=== PATIENT | female | born 1945 | race Caucasian/White ===

== ENCOUNTER → 2016-06-26 | Outpatient (CLI) | payer OTHER ==
[~2016-06-26] MED LIST: ALBU1AER9 INH; ASCO10003 PO; ASPI81TA21 PO; CHOL20005 PO; CYAN500T13 PO; LEVO50TA6 PO; LEVO75TA5 PO; LORA-741 PO; MONT1TAB3 PO; OMEG10007 PO; OXYC-57 PO; POLY335025 PO; SIMV10TA2 PO; VENL75TA4 PO; ZNTT/150 PO
--- NOTE | 2016-06-26 12:21 | DIAGNOSTIC IMAGING REPORT ---
EXAMINATION: RENAL ULTRASOUND CLINICAL HISTORY: Bladder carcinoma COMPARISON STUDY: CT scan performed July 2008 FINDINGS: The right kidney measures 9.2 cm. The left kidney measures 9.8 cm. There is no evidence of hydronephrosis. There are no renal masses. No bladder abnormalities are visualized. Bilateral ureteral jets were visualized. IMPRESSION : Normal study Electronically signed by: Abdulaziz Starkey M.D. 06/26/2016 12:19 PM Dictated Date/Time: 06/26/2016 12:18 PM
== END | disposition home or self-care (01) ==
LOC: C.ULTR 10:16
PROVIDERS: ATTEND Urology
DX: C67.9 Malignant neoplasm of bladder, unspecified (principal)

== ENCOUNTER → 2016-09-11 | Outpatient (CLI) | payer OTHER ==
[~2016-09-11] MED LIST changes: -OXYC-57 PO
[2016-09-11 12:29] LABS: BASO % 1.6 %; BASO ABS # 0.08 K/uL (0-0.2); COMPLETE YES; EOS % 5.7 %; HEMATOCRIT 40.2 % (37-47); LYMPH % 35.2 %; LYMPH ABS # 1.79 K/uL (1.2-3.4); MEAN CELL VOLUME 92.6 fL (80-100); MEAN CORPUSCULAR HEMOGLOBIN 31.8 pg (25-34); MEAN CORPUSCULAR HGB CONC 34.3 g/dl (32-36); MONO % 8.8 %; NEUT % 48.7 %; PLATELET COUNT 215 K/uL (130-400); RED BLOOD COUNT 4.34 M/uL (4.2-5.4); WHITE BLOOD COUNT 5.09 K/uL (4.8-10.8)
[2016-09-11 14:19] LABS: ALT/SGPT 25 U/L (12-78); BLOOD UREA NITROGEN 14 mg/dl (7-18); BUN/CREATININE RATIO 17.6 (10-20); CALCIUM 8.6 mg/dl (8.5-10.1); CARBON DIOXIDE 26 mmol/L (21-32); CHLORIDE 105 mmol/L (98-107); CHOLESTEROL 185 mg/dl (0-200); GLUCOSE 101 mg/dl (70-99); POTASSIUM 4.2 mmol/L (3.5-5.1); SODIUM 140 mmol/L (136-145); TRIGLYCERIDES 124 mg/dl (0-150); VERY LOW DENSITY LIPOPROT CALC 25 mg/dl
[2016-09-11 14:21] LABS: CHOLESTEROL/HDL RATIO 3.4; HDL CHOLESTEROL 54 mg/dl; LDL CHOLESTEROL CALCULATED 106 mg/dl
== END | disposition home or self-care (01) ==
LOC: C.LABPVFM 08:55
PROVIDERS: ATTEND Family Medicine
DX: Z11.59 Encounter for screening for other viral diseases (principal); E03.9 Hypothyroidism, unspecified; R53.83 Other fatigue; E78.5 Hyperlipidemia, unspecified

== ENCOUNTER → 2016-09-29 | Outpatient (CLI) | payer OTHER ==
[~2016-09-29] MED LIST changes: +OPTIRAY 320 IV PRN
--- NOTE | 2016-09-29 20:14 | DIAGNOSTIC IMAGING REPORT ---
CT OF THE ABDOMEN AND PELVIS WITH AND WITHOUT CONTRAST HEMATURIA PROTOCOL CLINICAL HISTORY: Hematuria. History of bladder cancer. COMPARISON STUDY: CT of the abdomen and pelvis July 30, 2008 and IVP March 10, 2016 and renal ultrasound June 26, 2016. TECHNIQUE: Unenhanced and split bolus phase imaging of the abdomen and pelvis was performed. Injection of 114 cc Optiray [address] DOSE: 895.66 mGycm FINDINGS: No renal, ureteral or bladder calculi are present. A 6 mm cyst within the upper pole of the right kidney is noted. There is a subcentimeter lesion within the lower pole the right kidney which is too small to characterize. No definite solid renal lesions are present. There is mild right hydroureteral necrosis which is likely similar to IVP of March 10, 2016. No upper tract urothelial lesions are identified on this examination. Note is made of a filling defect within the posterior aspect of the bladder that measures approximate 4.1 x 1.3 cm. This appears mobile. No additional abnormality is within the bladder present. The liver, spleen, adrenal glands and pancreas are normal. A small hiatal hernia is noted. There is no abdominal or pelvic lymphadenopathy. There is a moderate amount of stool within the colon. There is no evidence for a bowel obstruction. There are no suspicious osseous lesions. IMPRESSION: 1. 4.1 x 1.3 cm hypodense filling defect within the dependent aspect of the bladder which appears mobile. This is nonspecific and could debris or blood clot although is less dense than expected for clot. A tumor is considered much less likely although if persistent symptoms, correlation with cystoscopy is recommended. 2. Mild right hydroureter and borderline right hydronephrosis which is likely similar to IVP of March 10, 2016. 3. No urinary calculi. Electronically signed by: Hernandez Abreu M.D. 09/29/2016 8:13 PM Dictated Date/Time: 09/29/2016 5:56 PM
== END | disposition home or self-care (01) ==
LOC: C.CTS 16:18
PROVIDERS: ATTEND Urology
DX: C67.9 Malignant neoplasm of bladder, unspecified (principal); R31.9 Hematuria, unspecified; R10.9 Unspecified abdominal pain; N13.30 Unspecified hydronephrosis

== ENCOUNTER → 2017-02-07 | Outpatient (CLI) | payer OTHER ==
[~2017-02-07] MED LIST changes: -OPTIRAY 320 IV PRN
--- NOTE | 2017-02-07 16:11 | MAMMOGRAPHY REPORT ---
BILATERAL DIGITAL SCREENING MAMMOGRAM WITH CAD: 02/07/2017 CLINICAL HISTORY: Routine screening. TECHNIQUE: Current study was also evaluated with a Computer Aided Detection (CAD) system. COMPARISON: Comparison is made to exams dated: 02/01/2016 mammogram, 01/29/2015 mammogram, 01/28/2014 m ammogram, 10/02/2012 mammogram, 10/02/2011 mammogram, and 09/26/2010 mammogram - [facility] nter. BREAST COMPOSITION: The tissue of both breasts is heterogeneously dense, which may obscure small mas ses. FINDINGS: There is a 5 mm nodular asymmetry in the superior middle one third of the left breast on t he MLO view and a 5 mm nodular asymmetry in the lateral posterior left breast on the CC view. It is unclear if they represent the same finding. Nevertheless, additional spot compression tomosynthesis views and possibly ultrasound are recommended. There are stable postsurgical changes in the anterior left breast, with surgical clips remaining in p lace. A stable ribbon shaped metallic biopsy marker in the far posterior superior left breast on the MLO view. Benign-appearing rodlike calcifications bilaterally. No other suspicious mass, information and data architect analyst ural distortion or suspicious calcifications bilaterally. IMPRESSION: ACR BI-RADS CATEGORY 0: INCOMPLETE EVALUATION: NEED ADDITIONAL IMAGING EVALUATION The 5 mm nodular asymmetries in the left superior and lateral breast need additional evaluation. The patient will be called to schedule an appointment. Approximately 10% of breast cancers are not detected with mammography. A negative mammographic report should not delay biopsy if a clinically suggestive mass is present. Tanisha Hernandez M.D. ay/:02/07/2017 15:40:36 Senior Mobile Developer: Nikolay DIAZ(Aleida)(M), [facility] letter sent: Addl Imaging 0 BI-RADS Code: ACR BI-RADS Category 0: Incomplete Evaluation: Need Additional Imaging Evaluation
== END | disposition home or self-care (01) ==
LOC: C.MAMM 13:59
PROVIDERS: ATTEND Family Medicine
DX: Z12.31 Encounter for screening mammogram for malignant neoplasm of breast (principal); N64.89 Other specified disorders of breast

== ENCOUNTER → 2017-02-12 | Outpatient (CLI) | payer OTHER ==
--- NOTE | 2017-02-12 15:53 | MAMMOGRAPHY REPORT ---
UNILATERAL LEFT DIGITAL DIAGNOSTIC MAMMOGRAM TOMOSYNTHESIS AND TARGETED LEFT ULTRASOUND: 02/12/2017 CLINICAL HISTORY: 71 year-old woman with a personal history of left breast atypical ductal hyperplasi a status post surgical excision and could not tolerate hormone therapy. She was called back from [facility] ent screening mammogram for 5 mm nodular asymmetry in the lateral posterior left breast on the CC vie w, may project superiorly on the MLO view. Patient is also feeling a palpable lump in the medial lef t breast. TECHNIQUE: Spot compression left CC and MLO 2-D and tomosynthesis images were obtained. COMPARISON: Comparison is made to exams dated: 02/07/2017 mammogram, 02/01/2016 mammogram, 01/29/2015 ma mmogram, 01/28/2014 mammogram, 10/02/2012 mammogram, and 10/02/2011 mammogram - [facility]. BREAST COMPOSITION: The tissue of the left breast is heterogeneously dense, which may obscure small masses. FINDINGS: A triangular palpable marker overlies the lower inner anterior left breast, denoting the p alpable lump pointed out by the patient. There is no obvious new mass, architectural distortion or m icrocalcifications in the area of palpable lump. There are stable surgical clips in the anterior lef t breast, denoting the site of prior surgical excision. This excision was performed for a palpable l ump in 2011 and yielded atypical ductal hyperplasia at final surgical pathology. There is a stable r ibbon-shaped biopsy marker clip in the far superior and posterior left breast only seen on the spot c ompression MLO view which has been present and unchanged dating back to 2007. On the spot compressio n left CC view performed in the lateral breast, there is a lobulated, 5.9 x 4.3 mm mass slightly medi al to the original 5 mm asymmetry seen on the screening mammogram. No unexpected area of architectur al distortion is seen. No obvious mass or other suspicious abnormality is identified on the spot com pression MLO view. Further evaluation with ultrasound was performed. Targeted ultrasound was performed in the area of palpable lump pointed out by the patient and also th roughout the lateral left breast. In the 8:30 left breast, 4 cm from the nipple, on palpation there is a soft 1 cm mobile mass. In this area on ultrasound, there is a prominent fat lobule just deep to the dermis measuring 1.5 x 0.3 cm, which may correlate as palpated and is compatible with a benign l ipoma and/or prominent fat lobule. There is no evidence of a suspicious solid or cystic mass. In the 4:00 left breast, 2 cm from the nipple, there is a hypoechoic solid mass with non-circumscribe d borders measuring 4.5 x 3.0 x 5.5 mm. In the 12:00 left breast, 1 cm from the nipple, there is a h ypoechoic mass measuring 4.5 x 1.5 x 4.4 mm. This could simply represent postsurgical change or mendy gn duct ectasia. In the 1:00 left breast, 5 cm from the nipple, there is a multilobulated hypoechoic solid mass measuring approximately 4.8 x 4.5 x 2.0 mm. Given the personal history of atypia, ultras ound guided core biopsy of all 3 masses is recommended. It is unclear which of the masses may correl ate with the persistent mass seen on the spot compression view although the mass in the 4:00 axis see ms most likely. The ribbon-shaped biopsy marker clip that has been present back to 2007 is in the ap proximate 12:00 posterior breast and likely does not correlate with any of the above-described 3 mass es seen on the current ultrasound exam. IMPRESSION: ACR BI-RADS CATEGORY 4: SUSPICIOUS, TARGETED ULTRASOUND ACR BI-RADS CATEGORY 4: SUSPICIO US 1. Ultrasound guided core biopsy 3 is recommended in the left breast, for indeterminate solid ifeoma s identified in the 12:00, 1:00 and 4:00 axes. The initial 5 mm nodular asymmetries efface on both s upplemental mammographic views but there was a persistent lobulated 6 x 4 mm mass on the spot mandy tanya CC view which prompted the targeted breast ultrasound in the lateral aspect of the breast. 2. The palpable lump in the 9:00 left breast is thought to correlate with a benign lipoma or promine nt fat lobule. There is no evidence of a suspicious mass or mammographic or targeted sonographic jose juan dence of malignancy in the area of palpable concern. These results and recommendations were discussed with the patient at the time of the exam. She tenta tively scheduled the biopsy appointment prior to leaving our department. Approximately 10% of breast cancers are not detected with mammography. A negative mammographic report should not delay biopsy if a clinically suggestive mass is present. Tanisha Hernandez M.D. ay/:02/12/2017 14:54:42 Research Professor: Silvia DIAZ(Aleida)(M), [facility] letter sent: Abnormal 4/5 BI-RADS Code: ACR BI-RADS Category 4: Suspicious Ultrasound BI-RADS: ACR BI-RADS Category 4: Suspici ous
== END | disposition home or self-care (01) ==
LOC: C.MAMM 13:55
PROVIDERS: ATTEND Family Medicine
DX: R92.8 Other abnormal and inconclusive findings on diagnostic imaging of breast (principal); N63 Unspecified lump in breast

== ENCOUNTER → 2017-02-20 | Outpatient (CLI) | payer OTHER ==
--- NOTE | 2017-02-20 12:19 | Discharge Instructions ---
Discharge Instructions Procedure Procedure Date: Feb 20, 2017. Reason for visit: LEFT BREAST MASSES x3. Discharge Discharge Date: Feb 20, 2017. Discharge Diagnosis: post left breast ultrasound guided core biopsy x 3 Medications Restart Stopped Medication(s): May restart Aspirin tomorrow Instructions Activity Recommendations: Additional Limitations (see below) Return to School/Work: no limitations Recommended Home Diet: No Limitations Provider Instructions: ACTIVITY RECOMMENDATIONS: * No lifting, pushing, pulling or exercising the affected side for three days. RETURN TO SCHOOL/WORK: * You may return to work/school after the procedure, but do not perform any strenuous activities for 24 to 48 hours. MEDICATIONS: * Tylenol (two 325 mg) every four to six hours if needed for mild pain (if not allergic to Tylenol). DIET: * Resume previous diet. SPECIAL CARE INSTRUCTIONS: * Keep biopsy site dry for 24 hours. May shower after 24 hours, but do not soak (bathe) incision. * May remove Tegaderm (plastic patch) tomorrow AFTER showering. * Leave the steri-strips on for one week. Allow the steri-strips to fall off by themselves. If not off after one week, you may remove them. You may place a Bandaid crosswise over the strips, if desired. * Apply ice 10 minutes on and 10 minutes off as needed. * Wear a bra at bedtime to sleep more comfortably for 2-3 days. * Your referring physician should have the results after approximately 5 to 7 business days. * Call for unusual bleeding, fever, drainage, etc or if you have any questions call [phone] during normal business hours or after hours call Dr Hernandez, . FOLLOW UP VISIT: Follow-up with Referring Physician as scheduled. Allergies Coded Allergies: Chlorhexidine (Unverified Allergy, Severe, SEVERE SKIN WATKINS/ASTHMA ATTACK , 02/11/16) Isopropyl Alcohol (Unverified Allergy, Severe, SEVERE SKIN WATKINS/ASTHMA ATTACK, 02/11/16) Penicillins (Verified Allergy, Intermediate, RASH, 03/10/16) Sulfa Antibiotics (Verified Allergy, Intermediate, RASH, 03/10/16) Eliseo Barker Recommendations: Call your doctor if: * Temperature above 101 degrees * Pain not relieved by pain medicine ordered * There is increased drainage or redness from any incision * You have any unanswered questions or concerns. Your Doctors Instructions noted above were prepared by provider Tanisha Hernandez. Patient Signature Section: Patient Instructions Signature Page Dena Jacky Patient (or Guardian) Signature/Date: I have read and understand the instructions given to me by my caregivers. Caregiver/RN/Doctor Signature/Date: The above-named patient and/or guardian has received patient instructions on this date. + Original Patient Signature Page (only) stays with chart. Please make copy for patient.
--- NOTE | 2017-02-27 09:06 | MAMMOGRAPHY REPORT ---
ULTRASOUND GUIDED BIOPSY: 02/20/2017 CLINICAL HISTORY: 3 indeterminate hypoechoic solid masses in the left breast at 12:00, 1:00 and 4:00. Patient presented for ultrasound guided core biopsy 3. Please refer to the report from left breast ultrasound guided core biopsy performed at the same time for full detail. IMPRESSION: ULTRASOUND GUIDED BIOPSY Please refer to the report from left breast ultrasound guided core biopsy performed at the same time for full detail. Tanisha Hernandez M.D. ay/:02/20/2017 12:22:01 Steel Worker: Nikolay DIAZ(R)(M), [facility]
--- NOTE | 2017-02-27 09:06 | MAMMOGRAPHY REPORT ---
ULTRASOUND GUIDED BIOPSY: 02/20/2017 CLINICAL HISTORY: Indeterminate solid masses in the left breast 12:00, 1:00 and 4:00 axes. Patient p resents for ultrasound guided core biopsy 3. Please refer to the report from left breast ultrasound guided core biopsy performed at the same time for full detail. IMPRESSION: ULTRASOUND GUIDED BIOPSY Please refer to the report from left breast ultrasound guided core biopsy performed at the same time for full detail. Tanisha Hernandez M.D. ay/:02/20/2017 12:21:25 Airport Tower Controller: Nikolay Taylor RT(R)(M), [facility]
--- NOTE | 2017-02-27 09:06 | MAMMOGRAPHY REPORT ---
UNILATERAL LEFT DIGITAL DIAGNOSTIC MAMMOGRAM TOMOSYNTHESIS: 02/20/2017 CLINICAL HISTORY: Status post ultrasound guided core biopsy 3 in the left breast. Please refer to the report from left breast ultrasound guided core biopsy performed at the same time for full detail. IMPRESSION: POST PROCEDURE IMAGING FOR MARKER PLACEMENT Please refer to the report from left breast ultrasound guided core biopsy performed at the same time for full detail. Approximately 10% of breast cancers are not detected with mammography. A negative mammographic report should not delay biopsy if a clinically suggestive mass is present. Tanisha Hernandez M.D. ay/:02/20/2017 12:20:48 Special Services Agent: Nikolay DIAZ(R)(M), [facility] BI-RADS Code: Post Procedure Imaging For Marker Placement
--- NOTE | 2017-02-27 09:06 | MAMMOGRAPHY REPORT ---
MULTIPLE ULTRASOUND GUIDED BIOPSIES LEFT BREAST: 02/20/2017 CLINICAL HISTORY: 71-year-old woman presents for biopsy of 3 indeterminate hypoechoic solid masses in the left breast at 12:00, 1:00 and 4:00. At the time of diagnostic workup she also felt a lump in t he medial breast which is thought to represent a prominent fat lobule or benign lipoma. COMPARISON: Comparison is made to exams dated: 02/12/2017 ultrasound, 02/12/2017 mammogram, 02/07/2017 m ammogram, 02/01/2016 mammogram, 01/29/2015 mammogram, and 01/28/2014 mammogram - [facility]. PATIENT CONSENT: The procedure, risks and benefits were discussed with the patient and informed conse nt was obtained both verbally and in writing. Specific risks to this procedure include: bleeding, in fection, puncture of adjacent structure, nontarget biopsy, sampling error, pain, metal allergy and me dication reaction. PROCEDURE DESCRIPTION: A time out was performed and the left breast was agreed as the site of biopsie s. First repeat targeted ultrasound was performed in the left breast 12:00, 1:00 and 4:00 axes to reeval uate the lesions described on the prior diagnostic ultrasound report. They are all again identified and amenable to ultrasound-guided core biopsy. The skin of the left breast was prepped and draped in the usual sterile fashion. First, the solid hy poechoic mass in the 12:00 left breast was chosen as the target for biopsy. Subcutaneous and intrapar enchymal 1% buffered lidocaine, with and without epinephrine, was administered as local anesthesia. A skin incision was made. Through the incision, 4 samples were taken with a 14 gauge Achieve biopsy d evice. A ribbon shaped metallic marker was placed at the biopsy site. Hemostasis was achieved after m anual compression. The patient tolerated the procedure well and there was no immediate complication. Second, the lobulated hypoechoic solid mass in the 1:00 left breast was identified and chosen as targ et for biopsy. Intradermal, subcutaneous and intraparenchymal 1% buffered lidocaine, with and withou t epinephrine, was administered as local anesthesia. A skin incision was made. Through the incision, 4 samples were taken with a 14 gauge Achieve biopsy device. A wing shaped metallic marker was placed at the biopsy site. Hemostasis was achieved after manual compression. The patient tolerated the proc edure well and there was no immediate complication. Third, the circumscribed hypoechoic solid mass in the 4:00 left breast was identified and chosen as t arget for biopsy. Intradermal, subcutaneous and intraparenchymal 1% buffered lidocaine, with and with out epinephrine, was administered as local anesthesia. A skin incision was made. Through the incisio n, 4 samples were taken with a 14 gauge Achieve biopsy device. A lock shaped metallic marker was plac ed at the biopsy site. Hemostasis was achieved after manual compression. The patient tolerated the pr ocedure well and there was no immediate complication. All of the samples were sent to the pathology department in appropriately labeled containers. Post procedure left CC and ML tomosynthesis images and reconstructed CC view were obtained. 3 new me tallic biopsy markers are seen in the middle one third of the left breast. No significant postbiopsy hematoma is identified. IMPRESSION: ULTRASOUND GUIDED BIOPSY Status post ultrasound guided core needle biopsy of 3 indeterminate hypoechoic solid masses in the 12 :00, 1:00, and 4:00 axes of the left breast, with biopsy markers placed at each site. The patient will receive notification of the biopsy results from her referring physician. Tanisha Hernandez M.D. ay/:02/20/2017 12:45:53 Manager Foreign: Nikolay CARDOZO)(Ra), [facility]
--- NOTE | 2017-03-06 10:26 | CODING QUERY MEDICAL NECESSITY ---
CQSUPPORTING DIAGNOSIS NEEDED A supporting diagnosis is required for the test/procedure performed on this patient in order for us to be reimbursed by the patient's insurance. Please provide a supporting diagnosis for the following test/procedure listed below next to the test name along with your signature. *If there is no additional diagnosis for this patient that would support the following test/procedure please document that below next to the test/procedure. Test(s)/Procedure(s) that require a supporting diagnosis: DOS 02/20/17 PERCUTANEOUS IMAGE GUIDED BREAST BIOPSY TWO TIMES Provider Signature: Date: Thank you [facility] Information Management Once completed, please kindly fax back to [phone] For questions please call [phone]
== END | disposition home or self-care (01) ==
LOC: C.MAMM 10:32
PROVIDERS: ATTEND Family Medicine
DX: D24.2 Benign neoplasm of left breast (principal); N63 Unspecified lump in breast

== ENCOUNTER → 2017-03-01 | Outpatient (CLI) | payer OTHER ==
[2017-03-01 12:37] LABS: BLOOD UREA NITROGEN 12 mg/dl (7-18); BUN/CREATININE RATIO 16.2 (10-20); CALCIUM 8.7 mg/dl (8.5-10.1); CARBON DIOXIDE 26 mmol/L (21-32); CHLORIDE 103 mmol/L (98-107); CREATININE 0.76 mg/dl (0.60-1.20); GLUCOSE 106 mg/dl (70-99); SODIUM 136 mmol/L (136-145)
[2017-03-01 12:48] LABS: CHOLESTEROL 169 mg/dl (0-200); CHOLESTEROL/HDL RATIO 2.8; HDL CHOLESTEROL 60 mg/dl; LDL CHOLESTEROL CALCULATED 90 mg/dl; TRIGLYCERIDES 96 mg/dl (0-150); VERY LOW DENSITY LIPOPROT CALC 19 mg/dl
--- NOTE | 2017-03-06 09:44 | CODING QUERY MEDICAL NECESSITY ---
SUPPORTING DIAGNOSIS NEEDED Dr. Mcmahon, A supporting diagnosis is required for the test/procedure performed on this patient in order for us to be reimbursed by the patient's insurance. Please provide a supporting diagnosis for the following test/procedure listed below next to the test name along with your signature. *If there is no additional diagnosis for this patient that would support the following test/procedure please document that below next to the test/procedure. Test(s)/Procedure(s) that require a supporting diagnosis: * ([id number]) B12 VITAMIN LEVEL DIAGNOSIS: DATE OF SERVICE: 03/01/17 Provider Signature: Date: Thank you Moshe Gonz[facility]les [facility] Information Management Once completed, please kindly fax back to [phone] For questions please call [phone]
== END | disposition home or self-care (01) ==
LOC: C.LABPVFM 08:07
PROVIDERS: ATTEND Family Medicine
DX: E03.9 Hypothyroidism, unspecified (principal); E06.3 Autoimmune thyroiditis; R73.03 Prediabetes; E88.81 Metabolic syndrome and other insulin resistance; R53.83 Other fatigue

== ENCOUNTER → 2017-07-18 | Outpatient (CLI) | payer OTHER ==
[~2017-07-18] MED LIST changes: +RANI150T85 PO; -ZNTT/150 PO
--- NOTE | 2017-07-18 12:18 | DIAGNOSTIC IMAGING REPORT ---
MRI OF THE LUMBAR SPINE WITHOUT CONTRAST CLINICAL HISTORY: Spinal stenosis. Increasing low back pain radiating into right thigh. COMPARISON STUDY: Lumbar spine MRI September 11, 2005, lumbar spine radiographs July 10, [address] September 11, 2005. TECHNIQUE: Utilizing a 1.5 Mayda magnet and dedicated coil, multiplanar, multiecho imaging of the lumbar spine was performed without IV contrast. FINDINGS: For purposes of numbering on this exam, the L5-S1 disc space is assigned to axial image 27 of 30. There is 1.1 cm of anterolisthesis of L5 on S1 likely due to facet arthrosis. There is slight anterolisthesis of L3 on L4. There is marked disc space narrowing at L5-S1 and L3-L4 with moderate disc space narrowing at L4-L5. Conus terminates at the L1-L2 level. There is no intracanalicular mass or fluid collection. Paravertebral soft tissues are unremarkable. Discogenic changes are most pronounced at the L4-L5 level. A few Schmorl's nodes are noted. There is no suspicious marrow replacement. Significant progression of these findings is noted since MRI of September 11, 2005. L1-2: The central canal and neural foramen are patent. L2-3: There is facet arthrosis. The central canal neural foramina patent. L3-4: There is marked disc space narrowing. There is disc bulge with ligamentous hypertrophy and facet arthrosis. There is mild narrowing of the central canal, lateral recesses. There is mild narrowing of both neural foramen. L4-5: There is disc space narrowing with disc bulge, ligamentous hypertrophy and facet arthrosis. There is mild narrowing of the central canal, lateral recesses and the right neural foramen with moderate narrowing of the left neural foramen. L5-S1: There is grade II anterolisthesis with uncovering of the disc. There is facet arthrosis. There is moderate narrowing of the central canal. Severe bilateral neural foraminal narrowing is noted predominantly due to anterolisthesis. IMPRESSION: 1. Grade II anterolisthesis of L5 on S1 likely due to facet arthrosis. Moderate central canal narrowing and severe bilateral neural femoral stenosis at this level, predominantly due to anterolisthesis. 2. Mild central canal stenosis at L4-L5. Moderate left neural foraminal stenosis at L4-L5. 3. No lumbar spine fracture. No suspicious marrow replacement. Electronically signed by: Hernandez Abreu M.D. 07/18/2017 12:17 PM Dictated Date/Time: 07/18/2017 12:08 PM
== END | disposition home or self-care (01) ==
LOC: C.MRI 10:32
PROVIDERS: ATTEND Orthopaedic Surgery Orthopaedic Surgery of the Spine
DX: M48.061 Spinal stenosis, lumbar region without neurogenic claudication (principal)

== ENCOUNTER 2017-09-03 05:35 | Inpatient (IN) | payer OTHER ==
[2017-08-17 13:16] VITALS: BMI 22.0
--- NOTE | 2017-08-17 13:50 | PAT Medication Instructions ---
Service Date Aug 17, 2017. Current Home Medication List Aspirin Enteric Coated (Ecotrin Or Generic), 81 MG PO QAM Calcium W/ Vitamins D & K (Calcium + D + K), 1 TAB PO BID Cholecalciferol (Vitamin D3), 4,000 PO QPM Fish Oil ([place] Belle-3), 1 CAP PO BID Levothyroxine Sodium (Levothyroxine Sodium), 1 TAB PO for 2D Levothyroxine Sodium (Levothyroxine Sodium), 1 TAB PO Q2D Loratadine (Claritin), 10 MG PO AM Montelukast Sodium (Singulair), 10 MG PO HS PRN for RN Omeprazole (Prilosec), 40 MG PO QAM Polyethylene Glycol 3350 (Miralax), 1 DOSE PO DAILY PRN for BOWELS Simvastatin (Zocor), 20 MG PO QAM Venlafaxine Hcl (Effexor), 75 MG PO BID [Colace], 1 TAB PO BID [Eye Promise Vit], 1 TAB PO QAM Medication Instructions For Your Scheduled Surgery -Continue as directed: Levothyroxine Sodium (Levothyroxine Sodium), 1 TAB PO for 2D Levothyroxine Sodium (Levothyroxine Sodium), 1 TAB PO Q2D - Hold the following medications 2 weeks prior to surgery: Fish Oil ([place]-3), 1 CAP PO BID - Hold the following medications the morning of surgery: Calcium W/ Vitamins D & K (Calcium + D + K), 1 TAB PO BID Loratadine (Claritin), 10 MG PO AM Polyethylene Glycol 3350 (Miralax), 1 DOSE PO DAILY PRN for BOWELS [Colace], 1 TAB PO BID [Eye Promise Vit], 1 TAB PO QAM - Take the following medications the morning of surgery with a sip of water: Aspirin Enteric Coated (Ecotrin Or Generic), 81 MG PO QAM Montelukast Sodium (Singulair), 10 MG PO HS PRN for RN (if needed) Omeprazole (Prilosec), 40 MG PO QAM Simvastatin (Zocor), 20 MG PO QAM Venlafaxine Hcl (Effexor), 75 MG PO BID - Take the following medications as scheduled the night before surgery: Calcium W/ Vitamins D & K (Calcium + D + K), 1 TAB PO BID Cholecalciferol (Vitamin D3), 4,000 PO QPM Polyethylene Glycol 3350 (Miralax), 1 DOSE PO DAILY PRN for BOWELS (if needed) Venlafaxine Hcl (Effexor), 75 MG PO BID [Colace], 1 TAB PO BID If you have any questions please call us at [phone] or [phone] or [phone]
--- NOTE | 2017-08-17 14:41 | DIAGNOSTIC IMAGING REPORT ---
CHEST 2 VIEWS ROUTINE HISTORY: 71 years-old Female PAT preoperative exam. No acute chest complaints. COMPARISON: Chest radiographs 03/01/2015 TECHNIQUE: PA and lateral views of the chest FINDINGS: Cardiomediastinal and hilar silhouettes are within normal limits. Atherosclerosis of the aorta. There is no pneumothorax, pleural effusion, focal airspace consolidation or overt pulmonary edema. Lungs are hyperinflated with diaphragmatic flattening. The bones of the chest appear grossly intact. Surgical clips project over the left breast. IMPRESSION: No acute process. The above report was generated using voice recognition software. It may contain grammatical, syntax or spelling errors. Electronically signed by: Doc Albarado M.D. 08/17/2017 2:39 PM Dictated Date/Time: 08/17/2017 2:37 PM
[2017-08-17 14:59] LABS: BASO % 1.3 %; BASO ABS # 0.07 K/uL (0-0.2); EOS % 2.1 %; EOS ABS # 0.11 K/uL (0-0.5); HEMATOCRIT 40.4 % (37-47); HEMOGLOBIN 13.8 g/dL (12.0-16.0); IG# 0.01 K/uL (0.00-0.02); LYMPH % 29.1 %; LYMPH ABS # 1.56 K/uL (1.2-3.4); MEAN CELL VOLUME 93.1 fL (80-100); MEAN CORPUSCULAR HEMOGLOBIN 31.8 pg (25-34); MEAN CORPUSCULAR HGB CONC 34.2 g/dl (32-36); MEAN PLATELET VOLUME 10.9 fL (7.4-10.4); MONO % 10.4 %; MONO ABS # 0.56 K/uL (0.11-0.59); NEUT % 56.9 %; NEUT ABS # 3.05 K/uL (1.4-6.5); PLATELET COUNT 221 K/uL (130-400); RED CELL DISTRIBUTION WIDTH CV 13.6 % (11.5-14.5); RED CELL DISTRIBUTION WIDTH SD 46.7 fL (36.4-46.3); WHITE BLOOD COUNT 5.36 K/uL (4.8-10.8)
[2017-08-17 15:07] LABS: CALCIUM 8.9 mg/dl (8.5-10.1); CREATININE 0.84 mg/dl (0.60-1.20); POTASSIUM 3.7 mmol/L (3.5-5.1)
[2017-08-17 15:08] LABS: INR 0.9 (0.9-1.1); PTT PATIENT 28.8 SECONDS (21.0-31.0)
--- NOTE | 2017-09-02 23:37 | HISTORY & PHYSICAL EXAMINATION ---
DATE OF ADMISSION: 09/03/2017 HISTORY OF PRESENT ILLNESS: She is being preoped for lumbar spine laminectomy and fusion L4-L5 and L5-S1. She has low back pain and lower extremity difficulty, poor function, increasing neurological deficit. PAST MEDICAL HISTORY: High cholesterol, thyroid disease, bladder carcinoma. PAST SURGICAL HISTORY: Hysterectomy, lumpectomy, partial thyroid. ALLERGIES: PENICILLIN, SULFA, HIBICLENS. FAMILY HISTORY: Heart disease. SOCIAL HISTORY: She is . Three children. No tobacco, alcohol use. Very active lifestyle. REVIEW OF SYSTEMS: Denies any blurred vision, double vision, tinnitus or vertigo. Denies fever, sweats, chills. Denies chest pain, palpitation. No asthma, wheezing. No nausea, vomiting. No depression. She has joint pain, stiffness, ____, cramping and weakness. MEDICATIONS: Aspirin, vitamin D, levothyroxine, and simvastatin. PHYSICAL EXAMINATION: GENERAL: She has increasing pain with lying, sitting, standing. Only thing she gets better is she gets off her feet and rest and uses a heating pad. VITAL SIGNS: Blood pressure 130/80, pulse of 80, respiration rate 16. HEENT: Afebrile. CARDIAC: Normal S1, S2, no S3. LUNGS: Clear to auscultation. No rales, rhonchi, wheezing. ABDOMEN: Soft, nontender, bowel sounds present. NEUROLOGIC: She has weakness of the 4 nerve root. She has mild gait abnormality. She has decreased range of motion and pain with percussion. ASSESSMENT: Grade 1, possibly grade 2 spondylolisthesis L5 and S1, stenosis L4-L5, degenerative changes at 3-4. PLAN: Includes a lumbar spine laminectomy and fusion, L4-L5 and S1 lumbar spine.
[~2017-09-03] VITALS: Ht 161.3 cm; Wt 58.0 kg
[2017-09-03] VITALS (11 sets, daily range): BP systolic 83–134; BP diastolic 42–77; PULSE 61–83; TEMP 36.3–36.9; O2SAT 94–100; Ht 161.3 cm; Wt 58.0 kg
[~2017-09-03 05:35] MED LIST changes: -ALBU1AER9 INH; -ASCO10003 PO; +CALC750T PO; +CLR10 PO; +COLACE PO; -CYAN500T13 PO; -LORA-741 PO; +PRLSR20 PO; -RANI150T85 PO; +[UNRECOGNIZED DRUG - OTHER] PO
[2017-09-03] MEDS ORDERED: CLINDAMYCIN 600 MG/54 ML D5W 54 ML IV SCH (06:00)
[2017-09-03] MEDS ORDERED: ACETAMINOPHEN IV 100 ML IV SCH (06:00)
[2017-09-03] MEDS ORDERED: LACTATED RINGER'S 1000ML 1,000 ML IV SCH (06:00)
[2017-09-03] MEDS ORDERED: LACTATED RINGER'S 1000ML IV SCH (06:00)
[2017-09-03] MEDS ORDERED: BACITRACIN 50000 UNIT VIAL ONE (06:59)
[2017-09-03] MEDS ORDERED: VANCOMYCIN HCL 1000MG/20ML VIAL ONE (06:59)
[2017-09-03] MEDS ORDERED: THROMBIN FOR SOLN 20000 UNIT KIT ONE (06:59)
[2017-09-03] MEDS ORDERED: GELATIN SPONGE SZ 100 ONE (06:59)
[2017-09-03] MEDS ORDERED: BUPIVACAINE/EPINEPHRINE 0.5% MPF 1:200,000 30 ML VIAL ONE ×2 (07:00→07:08)
[2017-09-03] MEDS ORDERED: FENTANYL CITRATE INJ 50 MCG/1 ML 2 ML VIAL ONE ×2 (07:08)
[2017-09-03] MEDS ORDERED: MIDAZOLAM HCL 1 MG/ML 2ML VIAL ONE (07:08)
--- NOTE | 2017-09-03 07:25 | History & Physical Bridge Note ---
H&P Re-Evaluation Bridge Note: I have examined the patient, reviewed the History & Physical and in the interval since the performance of the History & Physical I have noted the following changes of clinical significance: No changes noted; fusion L4-S1
[2017-09-03] MEDS ORDERED: LIDOCAINE HCL 2% 2 ML VIAL (20MG/ML) ONE (08:05)
[2017-09-03] MEDS ORDERED: GLYCOPYRROLATE INJ 0.2 MG/ML VIAL ONE ×2 (08:05→09:41)
[2017-09-03] MEDS ORDERED: EpHEDrine SULFATE 50MG/5ML SYR ONE (08:05)
[2017-09-03] MEDS ORDERED: DEXAMETHASONE SOD INJ 4 MG/ML VIAL ONE (08:05)
[2017-09-03] MEDS ORDERED: ONDANSETRON INJ 2 MG/ML 2 ML VIAL ONE (08:05)
[2017-09-03] MEDS ORDERED: LARYING-O-JET KIT (LTA) ONE (08:06)
[2017-09-03] MEDS ORDERED: PROPOFOL IV EMULSION 10 MG/ML 20 ML VIAL IV ONE (08:06)
[2017-09-03] MEDS ORDERED: NEOSTIGMINE METHYLSULFATE 5 MG/5 ML SYR ONE (08:06)
[2017-09-03] MEDS ORDERED: ROCURONIUM BROMIDE 10 MG/ML 5 ML VIAL IV ONE (08:06)
[2017-09-03] MEDS ORDERED: HYDROmorphone INJ 2 MG/ML SYR/VIAL ONE (08:06)
[2017-09-03] MEDS ORDERED: ATROPINE SULFATE 0.1 MG/ML 5ML SYR IV PRN (08:30)
[2017-09-03] MEDS ORDERED: ONDANSETRON INJ 2 MG/ML 2 ML VIAL IV PRN ×2 (08:30→10:45)
[2017-09-03] MEDS ORDERED: HYDROmorphone INJ 2 MG/ML SYR/VIAL IV PRN (08:30)
[2017-09-03] MEDS ORDERED: EpHEDrine SULFATE INJ 50 MG/ML AMP IV PRN (08:30)
[2017-09-03] MEDS ORDERED: MEPERIDINE HCL 25 MG/ML CARP IV PRN (08:30)
[2017-09-03] MEDS ORDERED: LABETALOL HCL IV 5 MG/ML 20ML IV PRN (08:30)
[2017-09-03] MEDS ORDERED: PHENYLEPHRINE HCL INJ 10 MG/ML VIAL ONE (10:02)
--- NOTE | 2017-09-03 10:31 | DIAGNOSTIC IMAGING REPORT ---
Intraoperative lumbar spine single view CLINICAL HISTORY: L4-S1 LAMINECTOMY AND FUSION COMPARISON STUDY: No previous studies for comparison. FINDINGS: 80 seconds of fluoroscopic time was utilized. A single intraoperative lateral fluoroscopic spot film is provided for interpretation. The study reveals pedicle screws at the L4-L5 and S1 levels with adjoining spinal rods. There is a grade 1 spondylolisthesis of L4 on L5, and L5 on S1. IMPRESSION: Intraoperative radiograph showing postsurgical changes at the L4-S1 level. Electronically signed by: Abdulaziz Starkey M.D. 09/03/2017 10:30 AM Dictated Date/Time: 09/03/2017 10:29 AM
--- NOTE | 2017-09-03 10:37 | [facility] Post Operative Brief Note ---
Immediate Operative Summary Operative Date Sep 03, 2017. Pre-Operative Diagnosis Spondylolithesis L5-S1; Stenosis at L4-L5 with Degenerative Changes at L3-L4 Post-Operative Diagnosis Spondylolithesis L5-S1; Stenosis at L4-L5 with Degenerative Changes at L3-L4 Procedure(s) Performed L4-S1 Spinal Laminectomy and Fusion Surgeon Dr Guido Supervisor Dog License Officer Surgeon(s) Rl Mas PA-C Estimated Blood Loss 400ML Findings Consistent with Post-Op Diagnosis Specimens None per surgeon Drains hemovac Anesthesia Type General Complication(s) none Disposition Disposition: Recovery Room / PACU
[2017-09-03] MEDS ORDERED: SODIUM CHLORIDE 0.9% 1000ML 1,000 ML IV SCH (10:44)
[2017-09-03] MEDS ORDERED: NALOXONE HCL 0.4 MG/1 ML VIAL/CARP IV PRN (10:45)
[2017-09-03] MEDS ORDERED: MONTELUKAST SOD 10 MG TAB PO PRN (10:45)
[2017-09-03] MEDS ORDERED: MAGNESIUM HYDROXIDE SUSP 30 ML UDC PO PRN (10:45)
[2017-09-03] MEDS ORDERED: ACETAMINOPHEN 325 MG TAB PO PRN (10:45)
[2017-09-03] MEDS ORDERED: METOCLOPRAMIDE HCL INJ 5 MG/ML 2 ML VIAL IV PRN (10:45)
[2017-09-03] MEDS ORDERED: LORAZEPAM INJ 1 MG in SYRINGE 0 ML IV PRN (10:45)
[2017-09-03] MEDS ORDERED: PROMETHAZINE HCL INJ 12.5 MG in SODIUM CHLORIDE 0.9% 50ML 50 ML IV PRN (10:45)
[2017-09-03] MEDS ORDERED: LORAZEPAM 1 MG TAB PO PRN (10:45)
[2017-09-03] MEDS ORDERED: HYDROmorphone HCL 0.5MG/ML 50 ML CASSETTE ONE (10:57)
[2017-09-03] MEDS: FENTANYL CITRATE INJ 50 MCG/1 ML 2 ML VIAL IV PRN ×2 (11:14→11:20)
[2017-09-03 11:16] LABS: HEMATOCRIT 32.8 % (37-47); HEMOGLOBIN 11.2 g/dL (12.0-16.0)
--- NOTE | 2017-09-03 11:32 | Anesthesiology Progress Note ---
Anesthesia Post Op Note Date & Time Sep 03, 2017 at 11:32 Vital Signs Pain Intensity: 4 Vital Signs Past 12 Hours Date Time Temp Pulse Resp B/P (MAP) Pulse Ox O2 Delivery O2 Flow Rate FiO2 09/03/17 11:20 59 12 95/46 100 Nasal Cannula 4 09/03/17 11:10 58 12 96/52 100 Nasal Cannula 4 09/03/17 11:00 71 12 104/48 100 Oxymask 10 09/03/17 10:50 72 12 112/55 100 Oxymask 10 09/03/17 10:44 36.5 78 12 121/67 100 Oxymask 10 09/03/17 06:14 36.8 73 20 134/77 100 Room Air Notes Mental Status: alert / awake / arousable, participated in evaluation Pt Amnestic to Procedure: Yes Nausea / Vomiting: adequately controlled Pain: adequately controlled Airway Patency, RR, SpO2: stable & adequate BP & HR: stable & adequate Hydration State: stable & adequate Anesthetic Complications: no major complications apparent
--- NOTE | 2017-09-03 14:09 | OPERATIVE REPORT ---
DATE OF OPERATION: 09/03/2017 PREOPERATIVE DIAGNOSES: Spondylolisthesis, severe stenosis L4 to the sacrum. POSTOPERATIVE DIAGNOSES: Same. PROCEDURE: Included a posterior lumbar approach, decompression laminectomy for the sacrum, foraminotomy, partial facetectomies. Pedicle screw instrumentation, L4, L5, S1, reduction of spondylolisthesis. SURGEON: Dr. Guido. PARACHUTE REPAIRER: Rl Mas PA-C. COMPLICATIONS: Zero. BLOOD LOSS: 400 mL Sponge and needle count correct. IMPLANTS USED: By the [employer]. DESCRIPTION OF PROCEDURE: The patient was taken to the operating room, a general intubated anesthetic provided to the patient, placed prone, scrubbed, prepped and draped sterile. I made a skin incision, fascial incision, dissecting the soft tissue in the same plane. We were able to put in a deep self-retaining retractor. It was quite a significant spondylolisthesis and we began our decompression. We safely got the lamina off of L5 and L4, cleaned the nerve roots of obstruction. I was very pleased with the decompression. It was very tedious. There was no injury to the nerve structures or to the dural structures. We then instrumented spine, safely getting pedicle screws in L5-S1 bilaterally. We reduced the spondylolisthesis, locked down the construct. We bone grafted out the transverse processes with allograft and autograft. We irrigated thoroughly with about 1000 mL of fluid, closed in layers. Hemovac drain applied vancomycin powder also placed deep to the wound. Sterile dressing applied. The patient returned to recovery room satisfactory and stable. No apparent complications. I attest to the content of the Intraoperative Record and any orders documented therein. Any exception s are noted below.
[2017-09-03] MEDS: HYDROmorphone HCL 0.5MG/ML 50 ML CASSETTE IV PRN ×2 (15:15→22:54)
[2017-09-03] MEDS: DEXAMETHASONE INJ 10 MG in SYRINGE 0 ML IV SCH ×2 (15:43→23:56)
[2017-09-03] MEDS: CLINDAMYCIN IV 600 MG in DEXTROSE 5% 50ML 50 ML IV SCH ×2 (15:43→23:56)
[2017-09-03] MEDS: SODIUM CHLORIDE 0.9% 1000ML 1,000 ML IV SCH (16:41)
[2017-09-03] MEDS: CHOLECALCIFEROL 1000 INTER.UNIT TAB PO SCH (21:00)
[2017-09-03] MEDS: DOCUSATE SODIUM 100 MG CAP PO SCH (21:00)
[2017-09-03] MEDS: CALCIUM 600MG + VIT D 400 IU TAB PO SCH (21:00)
[2017-09-03] MEDS: VENLAFAXINE HCL 50 MG TAB PO SCH (21:05)
[2017-09-03] MEDS ORDERED: NURSING VERBAL MED ORDER ONE (21:30)
[2017-09-04 03:05] VITALS: BP 95/50; PULSE 83; TEMP 37; O2SAT 95
[2017-09-04] MEDS: SODIUM CHLORIDE 0.9% 1000ML 1,000 ML IV SCH (03:24)
[2017-09-04] MEDS ORDERED: BISACODYL 10 MG SUPP PR PRN (06:00)
[2017-09-04] MEDS ORDERED: LEVOTHYROXINE 50 MCG TAB PO SCH (06:00)
[2017-09-04] MEDS ORDERED: BISACODYL 5 MG TABEC PO PRN (06:00)
[2017-09-04 06:37] VITALS: BP 91/40; PULSE 89; TEMP 36.9; O2SAT 96
[2017-09-04] MEDS: HYDROmorphone HCL 0.5MG/ML 50 ML CASSETTE IV PRN (07:07)
[2017-09-04] MEDS ORDERED: OXYCODONE/ACETAMINOPHEN 5-325 TAB PO PRN ×2 (08:00)
[2017-09-04] MEDS ORDERED: HYDROmorphone INJ 2 MG/ML SYR/VIAL IV PRN ×2 (08:00)
[2017-09-04] MEDS ORDERED: DC PCA SCH (08:00)
[2017-09-04] MEDS: DOCUSATE SODIUM 100 MG CAP PO SCH ×2 (08:47→20:56)
[2017-09-04] MEDS: DEXAMETHASONE INJ 10 MG in SYRINGE 0 ML IV SCH ×2 (08:47→15:23)
[2017-09-04] MEDS: ASPIRIN 81 MG ECTAB PO SCH (08:48)
[2017-09-04] MEDS: CEROVITE ADV FORMULA TAB PO SCH (08:49)
[2017-09-04] MEDS: SIMVASTATIN 10 MG TAB PO SCH (08:49)
[2017-09-04] MEDS: PANTOprazole SOD 40 MG TAB PO SCH (08:49)
[2017-09-04] MEDS: CALCIUM 600MG + VIT D 400 IU TAB PO SCH ×3 (08:50→20:58)
[2017-09-04] MEDS: POLYETHYLENE (MIRALAX) 17 GM PACK PO SCH (08:50)
--- NOTE | 2017-09-04 08:59 | Discharge Instructions ---
Discharge Instructions Date of Service Sep 04, 2017. Admission Reason for Admission: Lumbar Spondylosis With Myelopathy Discharge Discharge Diagnosis / Problem: same Discharge Goals Goal(s): Improve function Activity Recommendations Activity Limitations: as noted below Lifting Limitations: no more than 5 pounds, until after follow-up appointment Exercise/Sports Limitations: until after follow-up appointment May Resume Sexual Activity: after follow-up appointment Shower/Bathe: keep incision dry . Instructions / Follow-Up Instructions / Follow-Up MEDICATIONS: Please take your prescriptions as instructed at your pre-op appointment. SPECIAL CARE: The following information is intended to answer some of the common questions and concerns regarding your surgery. Each patient is an individual and receives individual counselling throughout the course of treatment, from diagnosis to surgery all the way through recovery. What follows is not an exhaustive list, but should be a useful guide to some of the common questions and concerns patients have regarding their surgeries. These are not provided to keep you from calling us; rather, they give you something accurate and concrete to reference as you recover from your procedure. If you need us, we are available to you. As always, if you are not sure about something, call us at [phone]. MEDICAL EMERGENCIES: For these conditions, call 911 or go to your local hospital-based Emergency Department - not [facility] or equivalent. * Paralysis * Severe chest pain or difficulty breathing * Swelling or redness of either leg Spine procedures can be rather complex and though complications are rare, they do occur. In such cases, effective advice regarding emergency situations cannot always be addressed over the telephone. You may be referred to the emergency department for more effective management of your problem. Activity Limitations: It is important to give your body time to heal, so please limit your activities : * In general, don't do anything that moves your spine too much. You should avoid contact sports, twisting or heavy lifting while you recover. * 5-10 pounds is all you should attempt to lift. * You should not plan on driving for approximately 3 weeks and you should avoid traveling more than 30-45 minutes at a time. Longer trips should be broken down with walking breaks spaced appropriately. * Physical therapy is not usually required. * Walking and good posture practices will help you recover and regain your function. * Avoid straining or sudden changes in position. * In general, the goal is to take it easy and recover. Don't cause any new problems. Just relax. Showers: * Do not take a bath, use a Jacuzzi or hot tub or otherwise submerge your incision. * It is usually safe to take a shower 4-5 days after your surgery. * Your incision does not require any special creams or ointments. * Simply clean it with soap and water, dry and re-dress with a clean bandage afterwards. Incision: * Keep incision clean, dry and protected until your first follow-up appointment. * Some amount of drainage and redness is normal. Any drainage should be fairly clear and not have a foul odor. * If you feel anything is wrong or you have excessive drainage, please call us. * Your stitches and diamond will be removed 10-14 days after your surgery. At the time of your first post-op visit. * Neck surgeries are typically closed with a suture underneath the skin. The steri-strips over the incision should be maintained until we see you in the office. Bracing: * You may be provided with a back or neck brace to encourage good posture and prevent injury. It will remind you not to do too much as you heal and will alert others to the fact that you have had a surgery. * Back braces may be removed for showers and when you are resting at home. They must be worn when you are walking around for any period of time or for travel. * For neck surgery, you will likely be provided with two cervical collars. The soft collar (Hubbard or foam rubber) is worn most commonly throughout the day and while sleeping. The plastic collar (provided at the hospital) is for showering/bathing. * Except while eating, collars should remain in place. More specifically, bracing is provided for a purpose and should be worn. * Please obtain your brace or collars prior to your operation and bring them to the hospital with you on the day of surgery. * You should also bring your collars to your post-op appointment with Dr. Guido. You should always take good care of your body and practice healthy habits, especially following surgery. You should: * Follow your doctor's treatment plan * Sit and stand properly with good posture (ears over shoulders, shoulders over hips) Don't slouch * Learn to lift correctly * Exercise regularly (low-impact aerobic exercise is especially good, but check with your doctor first) * Generally, be up and walking for 5-10 minutes at a time at least 3-4 times per day from the day you get home * Increasing walking to tolerance until you can walk for 20-30 minutes at a time * Attain and maintain a healthy body weight * Eat healthy foods ( a well-balanced, low-fat diet rich in fruits and vegetables) and get enough calcium * Avoid excessive use of alcohol When to call our office - If you notice any of the following: * Increased pain not relieve by pain medicine * Fevers greater then 100 degrees F, chills or flu symptoms * Increased redness around incision * Drainage from the incision that is not clear * Any foul smelling drainage * Swelling or fluid collection beneath the skin Miscellaneous: * In the hospital, you may be given a walker or cane for support while walking. These are temporary needs and are intended to prevent injuries due to falls. You may discontinue them when you feel strong and steady enough on your feet. * Sleep in a comfortable position. We find that many patients find a lounge chair or recliner with several pillows to be beneficial in the early post-operative period. * The support stockings should be used for 7-10 days and may be discontinued when you are back to walking more and conducting usual household activities. No problem is insignificant. We are here to help you and get you well. Contact us at [phone]. Definitions: Foraminotomy: If part of the disc or a bone spur (osteophyte) is pressing on a nerve as it leaves the vertebra (through an exit called the foramen), a foraminotomy may be done. Otomy means "to make an opening." A foraminotomy is making the opening of the foramen larger, so the nerve can exit without being compressed. Laminotomy: Similar to the foraminotomy, a laminotomy makes a larger opening, this time in your bony plate protecting your spinal canal and spinal cord (the lamina). The lamina may be pressing on your nerve, so the surgeon may make more room for the nerves using a laminotomy. Laminectomy: Sometimes, a laminotomy is not sufficient. The surgeon may need to remove all or part of the lamina. This procedure is called a laminectomy. This can often be done at many levels without any harmful effects. Current Hospital Diet Patient's current hospital diet: Regular Diet Discharge Diet Recommended Diet: Regular Diet Procedures Procedures Performed: L4-S1 Spinal Laminectomy and Fusion Pending Studies Studies pending at discharge: no Medical Emergencies . Who to Call and When: Medical Emergencies: If at any time you feel your situation is an emergency, please call 911 immediately. . Non-Emergent Contact Non-Emergency issues call your: Primary Care Provider . "Provider Documentation" section prepared by [facility]. .
--- NOTE | 2017-09-04 09:29 | ORTHOPEDICS PROGRESS NOTE ---
DATE: 09/04/2017 SUBJECTIVE: She is alert, oriented. Pain controlled. No chest pain, shortness of breath, no confusion. OBJECTIVE: Vital signs stable. Hematocrit 32.8. ASSESSMENT: Status post reconstructive spinal surgery. She is out now 20 hours. DISPOSITION: Includes instructions, precautions, education to her pathology. We will get her up on feet ambulatory very short distances. Optimistically home tomorrow.
[2017-09-04] MEDS: VENLAFAXINE HCL 50 MG TAB PO SCH ×2 (09:51→18:08)
[2017-09-04 10:35] VITALS: BP 93/50; PULSE 82; TEMP 36.8; O2SAT 98
[2017-09-04 12:07] VITALS: BP 103/61; PULSE 77; TEMP 36.7; O2SAT 96
[2017-09-04] MEDS ORDERED: NURSING VERBAL MED ORDER ONE (12:30)
[2017-09-04 15:03] VITALS: BP 93/52; PULSE 87; TEMP 36.8; O2SAT 99
[2017-09-04] MEDS ORDERED: HYDR2TAB48 PO (17:26)
[2017-09-04] MEDS: CHOLECALCIFEROL 1000 INTER.UNIT TAB PO SCH (20:56)
[2017-09-04 22:51] VITALS: BP 93/55; PULSE 83; TEMP 36.7; O2SAT 98
[2017-09-05] MEDS: DEXAMETHASONE INJ 10 MG in SYRINGE 0 ML IV SCH (02:06)
[2017-09-05] MEDS ORDERED: LEVOTHYROXINE 75 MCG TAB PO SCH (06:00)
[2017-09-05 06:23] VITALS: BP 118/63; PULSE 81; TEMP 36.9; O2SAT 98
[2017-09-05] MEDS: CALCIUM 600MG + VIT D 400 IU TAB PO SCH (07:18)
[2017-09-05] MEDS: CEROVITE ADV FORMULA TAB PO SCH (07:19)
[2017-09-05] MEDS: DOCUSATE SODIUM 100 MG CAP PO SCH (07:19)
[2017-09-05] MEDS: PANTOprazole SOD 40 MG TAB PO SCH (07:19)
[2017-09-05] MEDS: SIMVASTATIN 10 MG TAB PO SCH (07:19)
[2017-09-05] MEDS: POLYETHYLENE (MIRALAX) 17 GM PACK PO SCH (07:20)
[2017-09-05] MEDS: VENLAFAXINE HCL 50 MG TAB PO SCH (07:20)
[2017-09-05] MEDS: ASPIRIN 81 MG ECTAB PO SCH (07:20)
[2017-09-05 08:03] VITALS: BP 114/72; PULSE 76; TEMP 36.4; O2SAT 100
--- NOTE | 2017-09-05 08:03 | DISCHARGE SUMMARY ---
SUBJECTIVE: She is day 2 post-lumbar spine reconstructive surgery and reduction of spondylolisthesis. She is alert, oriented, no chest pain, shortness of breath or confusion. OBJECTIVE: Her wound is clean. She has no neurological impediment. Vital signs are stable. Alert, oriented, answers questions. ASSESSMENT: Status post reconstructive spinal surgery, reduction of spondylolisthesis doing well in the short run. DISPOSITION: We will discharge her home later on today. She has home nursing. She has medication for pain. She has a followup appointment. She has a walker with wheels. She was given instructions and precautions in our office and here at the hospital.
[2017-09-05 08:10] VITALS: O2SAT 100
[2017-09-05 10:36] VITALS: BP 114/72; PULSE 76; TEMP 36.4; O2SAT 100
== END 2017-09-05 11:49 | disposition home or self-care (01) | DRG 460 ==
LOC: C.ACU 05:35 → C.3E 07:20 → ENRESERV 11:32
PROVIDERS: ADMIT Orthopaedic Surgery Orthopaedic Surgery of the Spine; ATTEND Orthopaedic Surgery Orthopaedic Surgery of the Spine
PROC: 0SG3071 Fusion of Lumbosacral Joint with Autologous Tissue Substitute, Posterior Approach, Posterior Column, Open Approach (ICD-10-PCS; principal; 2017-09-03 07:30)
PROC: 01NB0ZZ Release Lumbar Nerve, Open Approach (ICD-10-PCS; principal; 2017-09-03 07:30)
DX: M43.17 Spondylolisthesis, lumbosacral region (principal); M48.061 Spinal stenosis, lumbar region without neurogenic claudication; M47.816 Spondylosis without myelopathy or radiculopathy, lumbar region; E78.00 Pure hypercholesterolemia, unspecified; E07.9 Disorder of thyroid, unspecified; Z79.899 Other long term (current) drug therapy; Z79.82 Long term (current) use of aspirin; Z85.51 Personal history of malignant neoplasm of bladder; Z88.0 Allergy status to penicillin; Z88.2 Allergy status to sulfonamides; Z88.3 Allergy status to other anti-infective agents

== ENCOUNTER 2017-10-02 03:38 | Emergency (ER) | payer OTHER ==
[~2017-10-02] VITALS: Ht 160 cm; Wt 58.6 kg
[~2017-10-02 03:38] MED LIST changes: +ASPI-319 PO; -ASPI81TA21 PO
[2017-10-02 03:40] VITALS: TEMP 36.9; Ht 160 cm; Wt 58.6 kg
[2017-10-02] MEDS ORDERED: OXYCODONE/ACETAMINOPHEN 5-325 TAB PO ONE (04:00)
--- NOTE | 2017-10-02 04:20 | EMERGENCY ROOM VISIT NOTE ---
History Report prepared by Myla: Alyse Kuhn Under the Supervision of: Dr. Yamilka Zelaya M.D. First contact with patient: 03:45 Chief Complaint: LEG PAIN,LEG INJURY Stated Complaint: LT LEG LATERAL PAIN 4WK POST OP BACK SURGERY History of Present Illness The patient is a 71 year old female who presents to the Emergency Room with complaints of persistent left calf pain since yesterday. She thought she pulled a muscle, though reports the pain has not improved. She recently had back surgery performed by Dr. Guido, orthopedic surgeon. She denies any history of left leg weakness, though reports right leg weakness associated with her chronic back pain. She notes the pain in her leg begins with an electric sensation and then persists as a throbbing sensation. She states that she applied Biofreeze to it, though no relief. She states that she did not sleep well yesterday and the pain persisted through the night today. She states that Dr. Guido told her that she has nerve damage. She denies any falls, chest pain , shortness of breath, and cough. She denies any incontinence. She takes Aspirin. She denies any history of blood clots. Source of History: patient Onset: since yesterday Position: leg (left) Quality: other (electric, throbbing) Timing: other (persistent) Associated Symptoms: No cough, No chest pain, No SOB Note: Notes loss of sleep Review of Systems See HPI for pertinent positives & negatives. A total of 10 systems reviewed and were otherwise negative. Past Medical & Surgical Medical Problems: (1) Atypical hyperplasia of breast (2) Closed head injury (3) Concussion (4) Spondylolisthesis, lumbar region (5) Urothelial cancer Social History Problems: (1) Status post lumbar laminectomy Family History Cancer Social History Smoking Status: Never Smoker Smokeless Tobacco Use: No Alcohol Use: none Drug Use: none Marital Status: Housing Status: lives with significant other Occupation Status: retired Current/Historical Medications Scheduled Aspirin Enteric Coated (Ecotrin Or Generic), 81 MG PO QAM Calcium W/ Vitamins D & K (Calcium + D + K), 1 TAB PO BID Cholecalciferol (Vitamin D3), 4,000 UNITS PO QPM Fish Oil (Oakley-3), 1 CAP PO BID Levothyroxine Sodium (Levothyroxine Sodium), 1 TAB PO Q2D Loratadine (Claritin), 10 MG PO AM Omeprazole (Prilosec), 40 MG PO QAM Simvastatin (Zocor), 20 MG PO QAM Venlafaxine Hcl (Effexor), 75 MG PO BID [Eye Promise Vit], 1 TAB PO QAM Scheduled PRN Levothyroxine Sodium (Levothyroxine Sodium), 1 TAB PO for 2D Montelukast Sodium (Singulair), 10 MG PO HS PRN for RN Oxycodone Immediate Rel Tab (Roxicodone Ir), 5 MG PO Q4H PRN for Severe Pain Polyethylene Glycol 3350 (Miralax), 1 DOSE PO DAILY PRN for BOWELS Allergies Coded Allergies: Chlorhexidine (Unverified Allergy, Severe, SEVERE SKIN WATKINS/ASTHMA ATTACK , 10/02/17) Isopropyl Alcohol (Unverified Allergy, Severe, SEVERE SKIN WATKINS/ASTHMA ATTACK, 10/02/17) Penicillins (Verified Allergy, Intermediate, RASH, 10/02/17) Sulfa Antibiotics (Verified Allergy, Intermediate, RASH, 10/02/17) Adhesives (Verified Allergy, Unknown, SKIN IRRITATION PEELED SKIN OFF WITH SOME TAPES, 10/02/17) Physical Exam Vital Signs Date Time Temp Pulse Resp B/P (MAP) Pulse Ox O2 Delivery O2 Flow Rate FiO2 10/02/17 05:37 71 16 130/71 94 Room Air 10/02/17 03:40 36.9 91 16 116/82 99 Room Air Physical Exam Vital signs reviewed. General: Well-appearing, in no significant distress. HEENT: No scleral icterus, PERRLA, neck supple. Atraumatic. Cardiovascular: Regular rate and rhythm, no extra sounds. Pulmonary: Clear to auscultation bilaterally, normal work of breathing. Abdomen: Soft, nontender, nondistended, positive bowel sounds. Musculoskeletal: Atraumatic, no peripheral edema. well healing incision to the low lumbar spine. Mild tenderness to palpation to lateral left calf, no appreciable mass or swelling. Neurologic: Patient awake alert and oriented x 3, full strength in all 4 extremities. Cranial nerves 2 through 12 grossly intact. Some pain with left leg raise, no appreciable weakness. Skin: Warm, dry, no rash Medical Decision & Procedures ER Provider Diagnostic Interpretation: Radiology results as stated below per my review and interpretation: LUMBAR SPINE XR: Post-surgical change noted to L4, L5, and S1. No acute fracture. Hardware appears to be in good position. Significant fecal retention. Radiology results as stated below per my review and radiologist interpretation: US VENOUS LEFT LOWER EXTREMITY: No evidence of DVT in the left lower extremity. 2.6 x 1.2 x 1.9 cm left popliteal fossa cyst. Radiologist: Jeannine Luciano MD Study ready at 04:57 and initial results transmitted at 05:02 Medications Administered Medications (Trade) Dose Ordered Sig/Lynsey Route Start Time Stop Time Status Last Admin Dose Admin Oxycodone/ Acetaminophen (Percocet 5-325mg Tab) 1 tab NOW ONCE PO 10/02/17 04:00 10/02/17 04:02 DC 10/02/17 04:11 1 TAB ED Course 0357: Past medical records reviewed. The patient was evaluated in room B2. A complete history and physical examination was performed. 0400: Ordered Percocet 1 tab PO 0512: I reassessed the patient at this time. She is feeling better and resting comfortably. I discussed the results and treatment plan with the patient. I answered all pertaining questions that she had. She expressed understanding and verbalized agreement. The patient will be discharged home. Medical Decision Differential diagnosis: Etiologies such as musculoskeletal, disc herniation, fracture, aortic disease, metastatic disease, cord compression, discitis, infection, renal colic, gastrointestinal, acute exacerbation of chronic back pain, sciatica, cauda equina, DVT as well as others were entertained. This patient was evaluated and appeared to be in no significant distress. Ultrasound of the left lower extremity was performed and reveals no evidence of DVT. X-rays of the lumbar spine to my interpretation reveal postsurgical change however no acute fracture. She does have significant fecal retention. The patient's symptoms do seem to be radicular. As the patient has no appreciable weakness, loss of bowel or bladder function and has a localized pain only to the left lateral calf, I do not feel that this is likely an emergent surgical issue. Patient was informed of the findings. We did discuss stool softening agents as well as MiraLAX until she is able to clear her bowels. One Percocet tablet helped tremendously with the discomfort in the emergency department. She was given a short prescription for Percocet at home. Patient will contact her surgeon, Dr. Guido, later today for follow-up appointment. If symptoms progress, she was informed that she may need further imaging. Patient was discharged to the care of her and will return to the emergency department for worsening symptoms or any medical concerns. Medication Reconcilliation Current Medication List: was personally reviewed by me Blood Pressure Screening Patient's blood pressure: Normal blood pressure Impression Primary Impression: Lower extremity pain, left Additional Impressions: Status post laminectomy Fecal retention Scribe Attestation The scribe's documentation has been prepared under my direction and personally reviewed by me in its entirety. I confirm that the note above accurately reflects all work, treatment, procedures, and medical decision making performed by me. Departure Information Dispostion Home / Self-Care Prescriptions Oxycodone Immediate Rel Tab (ROXICODONE IR) 5 Mg Tab 5 MG PO Q4H Y for Severe Pain, #20 TAB Prov: Yamilka Zelaya M.D. 10/02/17 Referrals Lucie Mcmahon MD (PCP) Forms HOME CARE DOCUMENTATION FORM, IMPORTANT VISIT INFORMATION Patient Instructions My [facility] Additional Instructions Diagnosis: Left lower leg pain, status post laminectomy, fecal retention MiraLAX 1 capful every 4-6 hours until you have a significant bowel movement. Senna 2 tablets once daily for stool softening. Increase the fiber and water in your diet. OxyIR 5 mg every 4-6 hours as needed for severe pain. Do not drive on this medication. Tylenol 650 mg every 6 hours as needed for less severe pain. Contact Dr. Guido's office later today to arrange follow-up as soon as possible. Return to the emergency department for worsening of symptoms or any medical concerns. Problem Qualifiers
[2017-10-02] MEDS ORDERED: OXYC1TAB3 PO (05:21)
[2017-10-02 05:37] VITALS: BP 130/71; PULSE 71; O2SAT 94
--- NOTE | 2017-10-02 06:55 | DIAGNOSTIC IMAGING REPORT ---
LEFT LOWER EXTREMITY VENOUS DOPPLER CLINICAL HISTORY: Left lower extremity pain status post spine surgery COMPARISON STUDY: No previous studies for comparison. TECHNIQUE: Sonography of the deep venous system of the left lower extremity was performed. Compression and augmentation were evaluated. FINDINGS: The left common femoral, superficial femoral and popliteal veins were compressible. Augmentation was normal. Flow was shown within the deep calf vessels. Note was made of a 2.6 x 1.2 x 1.9 cm suspected left popliteal cyst. IMPRESSION: 1. No evidence of deep venous thrombus within the left lower extremity. 2. 2.6 x 1.2 x 1.9 cm left popliteal cyst. Electronically signed by: Hernandez Abreu M.D. 10/02/2017 6:53 AM Dictated Date/Time: 10/02/2017 6:52 AM
--- NOTE | 2017-10-02 06:57 | DIAGNOSTIC IMAGING REPORT ---
L-SPINE MIN 4 VIEWS ROUTINE CLINICAL HISTORY: 71 years-old Female presenting with Lumbar radiculopathy. TECHNIQUE: Frontal, bilateral oblique, lateral, and coned in lateral views of the lumbar spine were obtained. COMPARISON: CT from 2005 and MR from 07/18/2017. FINDINGS: Bilateral transpedicular screw and fixation of L4-S1, new from prior exam. No gross evidence of hardware breakage. Laminectomy defect at L4-5 also noted. No scoliosis. 11 mm of grade 2 anterolisthesis of L5 on S1, unchanged. 6 mm of grade 1 anterolisthesis of L3 on L4, unchanged. Vertebral bodies maintain normal height. Intervertebral disc height loss at L3-4. No evidence of compression deformity. Evaluation for osseous neural foraminal narrowing is difficult given the presence of the hardware. Moderate stool burden throughout the colon with a marked stool burden in the right colon evident. IMPRESSION: 1. Postsurgical changes of L4-S1 posterior fusion with laminectomies of L4-5, new since July. 2. Grade 2 anterolisthesis of L5 on S1, unchanged since July. 3. Findings suggest constipation. Electronically signed by: Piotr Morales M.D. 10/02/2017 6:55 AM Dictated Date/Time: 10/02/2017 6:51 AM
== END 2017-10-02 05:41 | disposition home or self-care (01) ==
LOC: C.EDB 03:39
DX: M79.662 Pain in left lower leg (principal); Z98.890 Other specified postprocedural states; K59.00 Constipation, unspecified; Z79.82 Long term (current) use of aspirin; Z88.8 Allergy status to other drugs, medicaments and biological substances; Z88.0 Allergy status to penicillin; Z88.2 Allergy status to sulfonamides; Z91.048 Other nonmedicinal substance allergy status

== ENCOUNTER → 2018-01-16 | Outpatient (CLI) | payer OTHER ==
[~2018-01-16] MED LIST changes: -COLACE PO; +OXYC-737 PO
[2018-01-16 12:46] LABS: HEMOGLOBIN A1C 6.3 % (4.5-5.6)
[2018-01-16 12:49] LABS: ALT/SGPT 24 U/L (12-78); BLOOD UREA NITROGEN 19 mg/dl (7-18); CALCIUM 8.9 mg/dl (8.5-10.1); CARBON DIOXIDE 24 mmol/L (21-32); CHOLESTEROL 176 mg/dl (0-200); CREATININE 0.88 mg/dl (0.60-1.20); GLUCOSE 108 mg/dl (70-99); LDL CHOLESTEROL CALCULATED 100 mg/dl; POTASSIUM 4.1 mmol/L (3.5-5.1); SODIUM 139 mmol/L (136-145)
== END | disposition home or self-care (01) ==
LOC: C.LABPVFM 08:53
PROVIDERS: ATTEND Family Medicine
DX: E03.9 Hypothyroidism, unspecified (principal); E78.5 Hyperlipidemia, unspecified; R73.03 Prediabetes

== ENCOUNTER → 2018-01-23 | Outpatient (CLI) | payer OTHER ==
[2018-01-23 12:18] LABS: BASO % 1.9 %; EOS % 2.9 %; EOS ABS # 0.15 K/uL (0-0.5); HEMATOCRIT 33.9 % (37-47); HEMOGLOBIN 10.4 g/dL (12.0-16.0); IG# 0.01 K/uL (0.00-0.02); LYMPH % 27.6 %; LYMPH ABS # 1.45 K/uL (1.2-3.4); MEAN CORPUSCULAR HEMOGLOBIN 24.5 pg (25-34); MEAN CORPUSCULAR HGB CONC 30.7 g/dl (32-36); MEAN PLATELET VOLUME 11.5 fL (7.4-10.4); MONO % 9.9 %; MONO ABS # 0.52 K/uL (0.11-0.59); NEUT % 57.5 %; NEUT ABS # 3.03 K/uL (1.4-6.5); PLATELET COUNT 276 K/uL (130-400); RED CELL DISTRIBUTION WIDTH CV 17.4 % (11.5-14.5); RED CELL DISTRIBUTION WIDTH SD 50.9 fL (36.4-46.3); WHITE BLOOD COUNT 5.26 K/uL (4.8-10.8)
== END | disposition home or self-care (01) ==
LOC: C.LAB 11:36
PROVIDERS: ATTEND Family Medicine
DX: R61 Generalized hyperhidrosis (principal); E03.9 Hypothyroidism, unspecified